=== PATIENT | male | born 1940 | race Two or more races ===

== ENCOUNTER 2021-01-24 23:41 | Emergency (ER) | payer MEDICARE, OTHER ==
[~2021-01-24] VITALS: Ht 182.9 cm; Wt 72.6 kg
[2021-01-25] MEDS ORDERED: HYDROcodone-ACET 7.5/325MG TAB PO ONE (03:15)
[2021-01-25 03:30] VITALS: BP 133/60
== END 2021-01-25 04:12 | disposition home or self-care (01) ==
LOC: EDBD 23:41 → ER 23:41
DX: S22.41XA Multiple fractures of ribs, right side, initial encounter for closed fracture (principal); I13.2 Hypertensive heart and chronic kidney disease with heart failure and with stage 5 chronic kidney disease, or end stage renal disease; N18.6 End stage renal disease; I50.9 Heart failure, unspecified; J44.9 Chronic obstructive pulmonary disease, unspecified; W07.XXXA Fall from chair, initial encounter; Y93.89 Activity, other specified; Y92.89 Other specified places as the place of occurrence of the external cause; Y99.8 Other external cause status
CPT/HCPCS: 71101